=== PATIENT | female | born 1985 | race Caucasian/White ===

== ENCOUNTER 2019-05-17 16:14 | Emergency (ER) | payer BC ==
[2019-05-17] MEDS ORDERED: Ketorolac 60 MG/2 ML SDV IM ONE (17:10)
--- NOTE | 2019-05-17 17:14 | EDM.PDOC ---
ED HPI GENERAL MEDICAL PROBLEM - General Chief Complaint: SENIOR TAX ANALYST Problem Stated Complaint: FEVER, CHILLS, SORE BREASTS Time Seen by Provider: 05/17/19 16:28 Source of Information: Reports: Patient, Family, RN Notes Reviewed History Limitations: Reports: No Limitations - History of Present Illness INITIAL COMMENTS - FREE TEXT/NARRATIVE: 33-year-old female presents emergency department today complaint of fever and body aches painful left breast, she is currently breast-feeding has never had mastitis before no nausea vomiting shortness breath or chest pain, Left Breast Pain Score (Numeric/FACES): 6 - Related Data Allergies Allergy/AdvReac Type Severity Reaction Status Date / Time No Known Allergies Allergy Verified 05/17/19 16:27 Home Meds: Home Meds NK [No Known Home Meds] 05/17/19 [History] 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: - Past Surgical History Head Surgeries/Procedures: Reports: None Dermatological Surgical History: Reports: None Social & Family History - Tobacco Use Smoking Status *Q: Never Smoker - Caffeine Use Caffeine Use: Reports: Coffee - Recreational Drug Use Recreational Drug Use: No ED ROS GENERAL - Review of Systems Review Of Systems: See Below Constitutional: Reports: Fever, Chills HEENT: Reports: No Symptoms Respiratory: Reports: No Symptoms Cardiovascular: Reports: No Symptoms GI/Abdominal: Reports: No Symptoms Musculoskeletal: Reports: Muscle Pain, Muscle Stiffness ED EXAM, SKIN/RASH Exam: See Below Text/Narrative:: Examination of left breast she does have an erythematous patch which covers the superior lateral portion from the areola approximately 5 cm Exam Limited By: No Limitations General Appearance: Alert, WD/WN, No Apparent Distress Course - Vital Signs Last Recorded V/S: Last Vital Signs Temp 99.8 F 05/17/19 17:49 Pulse 91 05/17/19 17:49 Resp 16 05/17/19 17:49 BP 94/55 L 05/17/19 17:49 Pulse Ox 98 05/17/19 17:49 - Orders/Labs/Meds Labs: Laboratory Tests 05/17/19 05/17/19 05/17/19 Range/Units 17:08 17:08 17:09 WBC 21.1 H (4.5-11.0) K/uL RBC 4.57 (3.30-5.50) M/uL Hgb 13.9 (12.0-15.0) g/dL Hct 41.3 (36.0-48.0) % MCV 90 (80-98) fL MCH 30 (27-31) pg MCHC 34 (32-36) % Plt Count 265 (150-400) K/uL Neut % (Auto) 92 H (36-66) % Lymph % (Auto) 3 L (24-44) % [place] % (Auto) 5 (2-6) % Eos % (Auto) 0 L (2-4) % Baso % (Auto) 0 (0-1) % Sodium 136 L (140-148) mmol/L Potassium 3.9 (3.6-5.2) mmol/L Chloride 102 (100-108) mmol/L Carbon Dioxide 26 (21-32) mmol/L Anion Gap 11.9 (5.0-14.0) mmol/L BUN 12 (7-18) mg/dL Creatinine 0.8 (0.6-1.0) mg/dL Est Cr Clr Drug Dosing 84.94 mL/min Estimated GFR (MDRD) > 60 (>60) Glucose 116 H (74-106) mg/dL Lactic Acid 1.3 (0.4-2.0) mmol/L Calcium 8.8 (8.5-10.1) mg/dL Total Bilirubin 0.8 (0.2-1.0) mg/dL AST 14 L (15-37) U/L ALT 29 (12-78) U/L Alkaline Phosphatase 62 (46-116) U/L Lactate Dehydrogenase 162 (82-234) U/L Total Protein 7.3 (6.4-8.2) g/dL Albumin 3.6 (3.4-5.0) g/dL Globulin 3.7 H (2.3-3.5) g/dL Albumin/Globulin Ratio 1.0 L (1.2-2.2) Meds: Medications Discontinued Medications Generic Name Dose Route Start Last Admin Trade Name Freq PRN Reason Stop Dose Admin Ketorolac Tromethamine 60 mg 05/17/19 17:10 05/17/19 17:16 Toradol IM 05/17/19 17:11 60 mg ONETIME ONE Administration Departure - Departure Time of Disposition: 17:56 Disposition: Home, Self-Care 01 Condition: Fair Clinical Impression: Mastitis - Discharge Information Instructions: and Mastitis Referrals: PCP,None [Primary Care Provider] - Forms: ED Department Discharge Additional Instructions: Take full course of antibiotics use Tylenol or Motrin as needed for pain control , Please followup with your primary care provider in 3-5 days if not better, please call return to the emergency department with worsening of symptoms. - Assessment/Plan Plan: Assessment Acuity = acute Site and laterality = mastitis left breast Etiology = probable bacterial cause Manifestations = none Location of injury = Home Lab values = WBC elevated 21.1 consistent leukocytosis, CMP unremarkable lactic acid is normal Plan placed on clindamycin 300 mg by mouth every 6 hours 10 days follow-up primary care in 3-5 days if no improvement This note was dictated using [employer] voice recognition software please call with any questions on syntax or grammar.
== END 2019-05-17 18:16 | disposition home or self-care (01) ==
LOC: JP.ED 16:14
DX: O91.23 Nonpurulent mastitis associated with lactation (principal)
CPT/HCPCS: 36415; 80053; 83605; 83615; 85025; 96372; 99283; J1885